=== PATIENT | female | born 1975 | race Caucasian/White ===

== ENCOUNTER 2025-05-30 08:20 | Emergency (ER) | payer OTHER, SELFPAY ==
[2025-05-30 08:21] VITALS: BP 137/79
--- NOTE | 2025-05-30 08:46 | ED.GENMED ---
History of Present Illness
General
Chief Complaint: Skin Surface Trauma
Time Seen by Provider: 05/30/25 08:42
History of Present Illness
History of Present Illness:
49-year-old female presents to the emergency department for evaluation of a minor laceration to the mid upper lip after being bitten by her dog. Dog is up-to-date on vaccinations. Last tetanus is unknown.
Review of Systems
Review of Systems
Allergies reviewed?: Yes
All Other Systems: ROS reviewed and negative except as documented in HPI and ROS
Phy Exam
Physical Exam
Physical Exam:
GEN: Well appearing, NAD, WDWN
HEENT: Oral mucosa moist, no scleral icterus, small subcentimeter vertical laceration to the mid upper lip, minimal vermilion involvement however this involvement is well-approximated
Cardiac: Regular rate
Lung: No respiratory distress, no tachypnea
MSK: No gross deformity or injuries
Skin: Good color, no pallor or jaundice, no rashes
Neuro: AO x3, moves all extremities freely
Psych: Calm, cooperative
Course
Orders/Labs/Results
Orders:
Orders
05/30/25 08:46
Lidocaine/Epinephrine/Tetracai [Let Topical Anesthetic Gel] 3 ml .ROUTE .STK-MED ONE
Lidocaine/Epinephrine/Tetracai [Let Topical Anesthetic Gel] 3 ml TOPICAL NOW STA
Tetanus/Diphth/Acelpertussis [Adacel] 0.5 ml IM .ONCE ONE
Vital Signs
Initial and Last Documented VS:
Initial Vital Signs
Temp Pulse Resp BP Pulse Ox
98.4 F 62 18 137/79 98
05/30/25 08:21 05/30/25 08:21 05/30/25 08:21 05/30/25 08:21 05/30/25 08:21
Last Documented Vital Signs
Temp Pulse Resp BP Pulse Ox
98.4 F 62 18 137/79 98
05/30/25 08:21 05/30/25 08:21 05/30/25 08:21 05/30/25 08:21 05/30/25 08:48
Procedures
Laceration Closure
Upper Lip:
Status of Wound: clean
Size of Wound in cm: 0.5
Description of Wound Edges: sharp
Preparation: cleaned with saline
Anesthesia: Topical-LET
Type of Closure: single layer closure
Skin Closure Material: other (5-0 fast gut)
Number of sutures: 2
MDM/Problems Addressed
MDM/Problems Addressed:
Wound closed with external fast-absorbing gut sutures due to the vermilion involvement, will cover with 5 days of Augmentin, tetanus updated
*Pulse Oximetry
SaO2: 98
Oxygen Mode of Delivery: Room air
Patient hypoxic: no
*Critical Care Note
Total Time (30-74mins, 75-104mins- exclusive of procedures): Not Applicable
ED Attending Note
-
Portions of this chart may have been created with voice recognition software.� Occasional wrong word or��sound alike� substitutions may have occurred due to the inherent limitations of voice recognition software.
Discharge Plan
Departure
Patient Disposition: Home (Routine Discharge)
Date of Disposition: 05/30/25
Time of Disposition: 09:16
Patient with high blood pressure during this ER visit?: No
Discharge Problem:
Dog bite of skin of lip
Instructions: Laceration Repair With Stitches (DC)
Prescriptions:
New
amoxicillin-pot clavulanate 875-125 mg tablet
1 tab PO BID 5 Days Qty: 10 0RF
Activity Restrictions/Additional Instructions:
Keep dry for next 24 hours
No drinking from a straw while sutures are in
In 5 days, attempt to remove the suture by pulling gently on the knot. If the suture does not come out easily, have it removed by urgent care, your primary doctor, or if needed, the ER
Interventions
Interventions:
*Risk Screen - Suicide Last Done: 05/30/25 08:21
*General Assessment Last Done: 05/30/25 08:21
*Neglect/Abuse Screening Last Done: 05/30/25 08:21
*ED- Fall Risk Assessment Last Done: 05/30/25 08:38
*ED COVID-19 Vaccine History Last Done: 05/30/25 08:38
ED-Skin Assessment Last Done: 05/30/25 08:38
Discharge Date and Time
Print Language: AZERI
[2025-05-30] MEDS: LET TOPICAL ANESTHETIC GEL 3 ML TOPICAL (09:02)
[2025-05-30] MEDS: ADACEL 0.5 ML IM (09:02)
== END 2025-05-30 09:40 | disposition home or self-care (01) ==
LOC: EMR 08:20
PROVIDERS: EMERGENCY PHYSICIAN Emergency Medicine; FAMILY PHYSICIAN Internal Medicine
DX: S01.551A Open bite of lip, initial encounter (principal); W54.0XXA Bitten by dog, initial encounter; Z23 Encounter for immunization
CPT/HCPCS: 99282; 12011; 90471; 90715